=== PATIENT | male | born 1980 | race Caucasian/White ===

== ENCOUNTER 2023-07-16 12:20 | Emergency (ER) | payer OTHER, SELFPAY ==
[2023-07-16 12:24] VITALS: BP 127/74
--- NOTE | 2023-07-16 13:27 | ED.GENMED ---
History of Present Illness
General
Chief Complaint: Eye Problems
Source: patient
Exam Limitations: none
Time Seen by Provider: 07/16/23 12:56
Nursing documentation reviewed up to this point in time: agreed with
Travel History
Have you had any contact with someone who has COVID-19?: No
Do you have any symptoms of coronavirus? Fever > 100 degrees, chills, cough, shortness of breath, sore throat, loss of taste or smell, muscle aches, or headache?: No
History of Present Illness
History of Present Illness:
42 y/o M with no pMH
here with right eyelid swelling x 1 week but got worse today
discomfort in the upper eyelid but no eye grittiness, no blurry vision, no fever, normal eye movement
doesn't wear corrective lenses
no other symptoms
no h/o eyelid infections in the past
has eye appt with [facility] in 3 days.
Past History
Past History
ED Past Medical History: None
ED Past Surgical History: None
Social History
Tobacco: Non-smoker
Alcohol: None
Drug: None
Personal:
Living: with family
Review of Systems
Review of Systems
Allergies reviewed?: Yes
All Other Systems: Not applicable
Phy Exam
Physical Exam
Physical Exam:
GENERAL: Alert , in no apparent distress
EYE: pupils equal and reactive , right eyelid mild to mod edema with erythema, able to open eye mid way
small area that appears like hordeolum in the lid margin medially; slightly tender
full EOMS
no dariange
no conjucnvitis
NECK: Supple
CARDIAC: Regular rate and rhythm, no edema
LUNGS: Clear breath sounds bilaterally, no acute respiratory distress, no wheezes/rales/rhonchi, occ cough
SKIN: Warm and dry, skin intact.
MUSCULOSKELETAL: No edema, well perfused.
PSYCH: Normal and appropriate interaction.
Course
Vital Signs
Initial and Last Documented VS:
Initial Vital Signs
Temp Pulse Resp BP Pulse Ox
98.0 F 58 16 127/74 98
07/16/23 12:24 07/16/23 12:24 07/16/23 12:24 07/16/23 12:24 07/16/23 12:24
Last Documented Vital Signs
Temp Pulse Resp BP Pulse Ox
98.0 F 58 16 127/74 98
07/16/23 12:24 07/16/23 12:24 07/16/23 12:24 07/16/23 12:24 07/16/23 12:24
MDM/Problems Addressed
Differential Diagnosis Includes:
hordeolum, cellulitis
MDM/Problems Addressed:
42-year-old male with right eyelid swelling and redness over the last week increasing in size today. He has no grittiness in his eye, conjunctivitis, tearing or photophobia, vision changes. His eyelid is slightly to moderately swollen with some
erythema and focal small papule suggestive of a hordeolum. Recommend warm compresses, topical and oral antibiotics, follow-up Optho
*Critical Care Note
Total Time (30-74mins, 75-104mins- exclusive of procedures): Not Applicable
ED Attending Note
-
Portions of this chart may have been created with voice recognition software.� Occasional wrong word or��sound alike� substitutions may have occurred due to the inherent limitations of voice recognition software.
Discharge Plan
Departure
Patient Disposition: Home (Routine Discharge)
Date of Disposition: 07/16/23
Time of Disposition: 13:32
Patient with high blood pressure during this ER visit?: No
Condition: Fair
Covid-19: Not Applicable
Discharge Problem:
Hordeolum externum (stye), Cellulitis of eyelid
Instructions: [facility]e (DC)
Prescriptions:
New
erythromycin 5 mg/gram (0.5 %) ointment
0.5 inch ophthalmic (eye) QID Qty: 3.5 0RF
Rx Instructions:
apply to left eye 4 times a day for 7 days
amoxicillin-pot clavulanate 875-125 mg tablet
1 tab PO BID Qty: 14 0RF
No Action
epinephrine [Auvi-Q] 0.3 mg/0.3 mL auto-injector
0.3 mg IM ONCE PRN (Reason: anaphylaxis) Qty: 2 0RF
Rx Instructions:
Use if you have throat swelling or difficulty breathing
Referrals:
NONE,* [Family Provider] -
Activity Restrictions/Additional Instructions:
Your eyelid swelling seems to be related to a stye which is a localized infection. Your eyelid is also swollen and red so we are treating you both with topical and oral antibiotics. The best thing you can do for this however is hot compresses.
You could use a teabag steeped in warm water and apply that for 10 minutes several times a day. Sometimes this will ultimately resolve the issue without needing to see an eye doctor. You can try calling the eye doctor moving up your appointment if
you are worse on Tuesday. Return for any concerns like fever, severe swelling and inability to open your eye, inability to move your eye socket or any concerns
Interventions
Interventions:
*Risk Screen - Suicide Last Done: 07/16/23 12:24
*ED COVID-19 Vaccine History Last Done: 07/16/23 12:24
*Nursing Disposition Last Done: 07/16/23 14:04
Discharge Date and Time
Discharge Date/Time: 07/16/23 14:04
== END 2023-07-16 14:04 | disposition home or self-care (01) ==
LOC: EMR 12:20
PROVIDERS: EMERGENCY PHYSICIAN Emergency Medicine
DX: H00.011 Hordeolum externum right upper eyelid (principal); H00.031 Abscess of right upper eyelid; H57.11 Ocular pain, right eye
CPT/HCPCS: 99283

== ENCOUNTER 2025-01-21 09:46 | Emergency (ER) | payer OTHER, SELFPAY ==
[2025-01-21 09:47] VITALS: BP 142/78
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
== END 2025-01-21 10:42 | disposition home or self-care (01) ==
LOC: EMR 09:46
PROVIDERS: EMERGENCY PHYSICIAN Emergency Medicine
DX: M70.32 Other bursitis of elbow, left elbow (principal); R60.0 Localized edema; V89.2XXA Person injured in unspecified motor-vehicle accident, traffic, initial encounter; Y92.410 Unspecified street and highway as the place of occurrence of the external cause
CPT/HCPCS: 99283